=== PATIENT | female | born 1980 | race African-American/Black ===

== ENCOUNTER 2017-02-04 20:16 | Emergency (ER) | payer MEDICAID ==
[~2017-02-04] VITALS: Ht 162.6 cm; Wt 88.0 kg
[~2017-02-04 20:16] MED LIST: TYLENOL OTC
[2017-02-04] MEDS ORDERED: METOCLOPRAMIDE HCL 10MG/2ML VIAL IV ONE (23:00)
[2017-02-04] MEDS ORDERED: DIPHENHYDRAMINE 50MG/ML VIAL IV ONE (23:00)
[2017-02-04 23:21] LABS: BASOPHILS % 0.5 % (0.0-2.0); CHLORIDE 106 mEq/L (98-107); HEMATOCRIT. 35.6 % (36.0-48.0); HEMOGLOBIN. 11.8 g/dL (12.0-16.0); LYMPHOCYTES % 38.4 % (20.0-50.0); MEAN CORPUSCULAR HEMOGLOBIN 27.9 pg (28.0-32.0); MEAN CORPUSCULAR VOLUME 84.5 fL (81.0-99.0); MEAN PLATELET VOLUME 9.7 fl (7.4-10.4); MONOCYTES % 6.8 % (2.0-8.0); NEUTROPHILS % 52.3 % (40.0-76.0); PLATELET 249 x1000/uL (130-400); RED BLOOD CELL COUNT 4.22 mill/uL (4.2-5.4); RED CELL DISTRIBUTION WIDTH 14.4 % (11.6-14.6)
[2017-02-04 23:24] LABS: CLARITY URINE CLEAR (CLEAR); COLOR URINE YELLOW (YELLOW); KETONES URINE TRACE (NEGATIVE); LEUKOCYTE ESTERASE URINE NEGATIVE (NEGATIVE); NITRITE URINE NEGATIVE (NEGATIVE); OCCULT BLOOD URINE 1+ (NEGATIVE); PH URINE 5.5 (4.5-8.0); PROTEIN URINE NEGATIVE (NEGATIVE); SPECIFIC GRAVITY URINE 1.026 (1.005-1.030)
[2017-02-04 23:26] LABS: CARBON DIOXIDE 26 mEq/L (21-32)
[2017-02-05 01:20] VITALS: BP 139/89
== END 2017-02-05 01:24 | disposition home or self-care (01) ==
LOC: ER 20:16
DX: G43.909 Migraine, unspecified, not intractable, without status migrainosus (principal); I10 Essential (primary) hypertension; N89.8 Other specified noninflammatory disorders of vagina; Z90.49 Acquired absence of other specified parts of digestive tract
CPT/HCPCS: 36415; 80048; 81001; 81025; 85025; 96374; 96375; 99284; J1200; J2765

== ENCOUNTER 2017-09-27 13:37 | Emergency (ER) | payer MEDICAID ==
[~2017-09-27] VITALS: Ht 165.1 cm; Wt 80.0 kg
[2017-09-27] MEDS ORDERED: KETOROLAC 60MG/2ML VIAL IM ONE (17:15)
[2017-09-27] MEDS ORDERED: CYCLOBENZAPRINE 10MG TABLET PO ONE (17:15)
[2017-09-27 18:15] VITALS: BP 131/84
== END 2017-09-27 18:57 | disposition home or self-care (01) ==
LOC: ER 13:46
DX: M79.604 Pain in right leg (principal); Z90.49 Acquired absence of other specified parts of digestive tract; V43.62XA Car passenger injured in collision with other type car in traffic accident, initial encounter; Y93.89 Activity, other specified; Y92.488 Other paved roadways as the place of occurrence of the external cause
CPT/HCPCS: 73562; 81025; 96372; 99284; J1885; Z7610

== ENCOUNTER 2018-01-19 03:00 | Emergency (ER) | payer MEDICAID ==
[2018-01-19] MEDS ORDERED: ONDANSETRON 4MG ODT PO STA (06:36)
[2018-01-19] MEDS ORDERED: ACETAMINOPHEN 325MG TABLET PO STA (06:36)
[2018-01-19] MEDS ORDERED: ACETAMINOPHEN 325MG TABLET ONE (06:37)
[2018-01-19] MEDS ORDERED: ONDANSETRON 4MG ODT ONE (06:38)
[2018-01-19] MEDS ORDERED: ONDANSETRON 4MG ODT PO ONE (06:45)
[2018-01-19] MEDS ORDERED: ACETAMINOPHEN 325MG TABLET PO ONE (06:45)
[2018-01-19 07:14] LABS: BASOPHILS % 0.7 % (0.0-2.0); EOSINOPHILS % 3.4 % (0.0-5.0); HEMATOCRIT. 35.4 % (36.0-48.0); HEMOGLOBIN. 11.7 g/dL (12.0-16.0); LYMPHOCYTES % 22.5 % (20.0-50.0); MEAN CORPUSCULAR HEMOGLOBIN 27.9 pg (28.0-32.0); MEAN CORPUSCULAR VOLUME 84.7 fL (81.0-99.0); MEAN PLATELET VOLUME 9.2 fl (7.4-10.4); MONOCYTES % 6.1 % (2.0-8.0); NEUTROPHILS % 67.3 % (40.0-76.0); PLATELET 266 x1000/uL (130-400); RED BLOOD CELL COUNT 4.19 mill/uL (4.2-5.4); RED CELL DISTRIBUTION WIDTH 14.7 % (11.6-14.6)
[2018-01-19 07:16] LABS: CHLORIDE 105 mEq/L (98-107)
[2018-01-19 07:40] LABS: B-HCG QUANTITATIVE 56832 mIU/mL (<3)
[2018-01-19 08:24] LABS: CLARITY URINE CLEAR (CLEAR); COLOR URINE YELLOW (YELLOW); KETONES URINE NEGATIVE (NEGATIVE); LEUKOCYTE ESTERASE URINE NEGATIVE (NEGATIVE); NITRITE URINE NEGATIVE (NEGATIVE); OCCULT BLOOD URINE TRACE (NEGATIVE); PH URINE 5.5 (4.5-8.0); PROTEIN URINE NEGATIVE (NEGATIVE); SPECIFIC GRAVITY URINE 1.017 (1.005-1.030); UROBILINOGEN URINE 0.2 E.U./dL (0.2-1.0)
[2018-01-19 10:30] VITALS: BP 120/84
== END 2018-01-19 10:35 | disposition home or self-care (01) ==
LOC: ER 03:00
DX: O03.88 Urinary tract infection following complete or unspecified spontaneous abortion (principal); Z3A.11 11 weeks gestation of pregnancy; Z90.49 Acquired absence of other specified parts of digestive tract
CPT/HCPCS: 36415; 76801; 76817; 80053; 81003; 84702; 85025; 86900; 86901; 99285; Q0162